=== PATIENT | female | born 1970 | race Caucasian/White ===

== ENCOUNTER → 2018-04-28 | Outpatient (CLI) | payer OTHER ==
[2018-04-28 10:52] LABS: HEMOGLOBIN 13.7 g/dL (12.5-16.0); MEAN PLATELET VOLUME 10.8 fl (7.4-10.4); RED BLOOD COUNT 4.41 M/mm3 (4.10-5.30); RED CELL DISTRIBUTION WIDTH 12.2 % (11.5-14.5); WHITE BLOOD COUNT 6.4 K/mm3 (4.8-10.8)
[2018-04-28 11:05] LABS: ALBUMIN 4.6 g/dL (3.5-5.0); TOTAL BILIRUBIN 0.5 mg/dL (0.2-1.3); TOTAL PROTEIN 7.2 g/dL (6.3-8.2)
[2018-04-28 11:10] LABS: POTASSIUM 4.2 mmol/L (3.6-5.0)
== END ==
LOC: LAB 10:32
PROVIDERS: Family Medicine
DX: Z13.6 Encounter for screening for cardiovascular disorders (principal); Z13.1 Encounter for screening for diabetes mellitus; G47.00 Insomnia, unspecified; R53.83 Other fatigue

== ENCOUNTER → 2018-10-29 | Outpatient (CLI) | payer OTHER | LOC: RAD 14:57 | DX: S99.921A Unspecified injury of right foot, initial encounter (principal) ==

== ENCOUNTER → 2019-01-04 | Outpatient (CLI) | payer OTHER | LOC: RAD 15:55 | DX: S49.92XA Unspecified injury of left shoulder and upper arm, initial encounter (principal); R21 Rash and other nonspecific skin eruption; M89.8X1 Other specified disorders of bone, shoulder ==

== ENCOUNTER → 2019-09-22 | Outpatient (CLI) | payer OTHER | LOC: RAD 13:37 | DX: M47.812 Spondylosis without myelopathy or radiculopathy, cervical region (principal); R51 Headache ==

== ENCOUNTER → 2020-02-07 | Outpatient (CLI) | payer OTHER | LOC: LAB 09:02 | DX: U07.1 COVID-19 (principal) ==